=== PATIENT | male | born 1965 | race Caucasian/White ===

== ENCOUNTER 2017-06-24 15:11 | Emergency (ER) | payer OTHER ==
[2017-06-24] MEDS ORDERED: HYDROmorphone 1 MG/ML Syringe IVPUSH ONE ×2 (15:19→17:03)
[2017-06-24] MEDS ORDERED: Ondansetron 4 MG/2 ML SDV IVPUSH ONE (15:19)
[2017-06-24] MEDS ORDERED: Sodium Chloride 0.9% 10 ML Syringe FLUSH PRN (15:23)
[2017-06-24 15:24] VITALS: BP 121/71
[2017-06-24] MEDS ORDERED: Iopamidol 755 Mg/ML 100 ML Bottle IVPUSH ONE (15:30)
--- NOTE | 2017-06-24 15:30 | EDM.PDOC ---
ED HPI GENERAL MEDICAL PROBLEM - General Chief Complaint: Trauma Stated Complaint: FELL OFF LADDER Time Seen by Provider: 06/24/17 15:12 Source of Information: Reports: Patient History Limitations: Reports: No Limitations - History of Present Illness INITIAL COMMENTS - FREE TEXT/NARRATIVE: 52-year-old male presents for evaluation and treatment of injuries sustained from falling off a ladder. Injury occurred prior to arrival in the ER. Patient arrives via private vehicle. He is currently complaining of pain greatest to his right elbow and right shoulder. He also has a laceration to the right brow. He is unsure if he had any syncope but does not believe so. Believes he landed on his right arm. Also has pain to the left knee. Able to get up and walk inside after the fall. He denies any neck pain, chest pain, shortness of breath , abdominal pain, and nausea, vomiting, vision changes, epistaxis any pain in the hips. Tetanus is up-to-date. Trauma alert called upon arrival to the ER. C-collar applied upon arrival to the ER. Onset: Today Location: Reports: Upper Extremity, Right (elbow and shoulder) Right Arm Pain Score (Numeric/FACES): 10 - Related Data Allergies Allergy/AdvReac Type Severity Reaction Status Date / Time No Known Allergies Allergy Verified 06/24/17 15:13 Home Meds: Home Meds Acetaminophen/oxyCODONE [Percocet 325-5 MG] 1 tab PO Q6H PRN #20 tablet [Rx] Cephalexin [IJP: Cephalexin] 500 mg PO .EVERY 8 HOURS #21 cap 06/24/17 [Rx] Past Medical History HEENT History: Reports: None Cardiovascular History: Reports: None Respiratory History: Reports: Asthma (No Sx for 4 years) Other Respiratory History: Hx of Severe Snoring Gastrointestinal History: Reports: None Other Genitourinary History: increased PSA screen Musculoskeletal History: Reports: None Neurological History: Reports: None Psychiatric History: Reports: None Endocrine/Metabolic History: Reports: None - Past Surgical History GI Surgical History: Reports: Appendectomy, Cholecystectomy, Hernia, Inguinal Social & Family History - Tobacco Use Smoking Status *Q: Former Smoker (1-2 PPD X 35 yrs. - Quit 2011) Second Hand Smoke Exposure: No - Alcohol Use Days Per Week of Alcohol Use: 0 - Recreational Drug Use Recreational Drug Use: No Drug Use in Last 12 Months: No Review of Systems - Review of Systems Review Of Systems: See Below Eyes: Denies: Vision Change Nose: Denies: Epistaxis Mouth/Throat: Denies: Loose Teeth Respiratory: Denies: Shortness of Breath Cardiovascular: Denies: Chest Pain GI/Abdominal: Denies: Abdominal Pain, Vomiting Musculoskeletal: Reports: Shoulder Pain (right), Arm Pain (right), Joint Pain ( right shoudler and elbow, left knee). Denies: Neck Pain, Back Pain Skin: Reports: Wound (right brow) Neurological: Denies: Syncope (unsure, does no believe so), Difficulty Walking ED EXAM, GENERAL - Physical Exam Exam: See Below Exam Limited By: No Limitations General Appearance: Alert, WD/WN, Moderate Distress Eye Exam: Bilateral Eye: EOMI, Normal Inspection, PERRL Ears: Normal External Exam, Normal Canal, Hearing Grossly Normal, Normal TMs Nose: Normal Inspection, No Blood Throat/Mouth: Normal Inspection, Normal Lips, Normal Voice, No Airway Compromise Head: Other (3cm laceration to the right brow) Neck: Normal Inspection, Supple, Non-Tender, Full Range of Motion, Other (c- collar applied upon arrival) Respiratory/Chest: No Respiratory Distress, Lungs Clear, Normal Breath Sounds Cardiovascular: Normal Peripheral Pulses, Regular Rate, Rhythm, No Murmur Peripheral Pulses: 2+: Radial (L), Radial (R), Posterior Tibial (L), Posterior Tibial (R), Dorsalis Pedis (L), Dorsalis Pedis (R) GI/Abdominal: Normal Bowel Sounds, Soft, Non-Tender Back Exam: Normal Inspection. No: Vertebral Tenderness Extremities: Normal Inspection, Normal Capillary Refill, Other (pain with palpation to the right shuolder and elbow; reports pain greatest to the right elbow with radiation to the right shoulder; pain with palpation to the left knee ) Neurological: Alert, Oriented, Normal Cognition Psychiatric: Normal Affect, Normal Mood Skin Exam: Warm, Dry, Other (3cm laceration to the right lateral brow; 1cm abrasion to the right anterior mid tibia) ED TRAUMA PROCEDURES - Laceration/Wound Repair Right Lateral Brow Lac/Wound Length In cm: 3 Appearance: Linear Distal NVT: Neuro & Vascular Intact, No Tendon Injury Anesthetic Type: Local Local Anesthesia - Lidocaine (Xylocaine): 1% Plain Local Anesthetic Volume: 4cc Exploration/Debridement/Repair: Wound Explored, No Foreign Material Found Suture Size: other (6-0) # of Sutures: 10 Suture Type: Nylon, Interrupted, Simple Suture Size: other (5-0) # of Sutures: 5 Repaired With: Vicryl Sterile Dressing Applied: Nurse Tetanus Status Addressed: Yes Complications: No Course - Vital Signs Last Recorded V/S: Last Vital Signs Temp 36.9 C 06/24/17 15:15 Pulse 51 L 06/24/17 15:15 Resp 16 06/24/17 15:15 BP 121/71 06/24/17 15:15 Pulse Ox 97 06/24/17 15:15 - Orders/Labs/Meds Labs: Laboratory Tests 06/24/17 06/24/17 06/24/17 Range/Units 15:20 15:20 15:20 WBC 6.69 (4.23-9.07) K/mm3 RBC 4.94 (4.63-6.08) M/mm3 Hgb 14.3 (13.7-17.5) gm/L Hct 41.3 (40.1-51.0) % MCV 83.6 (79.0-92.2) fl MCH 28.9 (25.7-32.2) pg MCHC 34.6 (32.2-35.5) g/dl RDW Std Deviation 37.4 (35.1-43.9) fL Plt Count 241 (163-337) K/mm3 MPV 9.4 (9.4-12.3) fl Neut % (Auto) 39.5 (34.0-67.9) % Lymph % (Auto) 46.9 (21.8-53.1) % Baldwin % (Auto) 9.9 (5.3-12.2) % Eos % (Auto) 3.3 (0.8-7.0) Baso % (Auto) 0.4 (0.1-1.2) % Neut # (Auto) 2.64 (1.78-5.38) K/mm3 Lymph # (Auto) 3.14 (1.32-3.57) K/mm3 Baldwin # (Auto) 0.66 (0.30-0.82) K/mm3 Eos # (Auto) 0.22 (0.04-0.54) K/mm3 Baso # (Auto) 0.03 (0.01-0.08) K/mm3 PT 10.2 (8.0-13.0) SECONDS INR 0.94 APTT 23 (22-36) SECONDS Sodium 139 (136-145) mEq/L Potassium 3.9 (3.5-5.1) mEq/L Chloride 106 (98-107) mEq/L Carbon Dioxide 25 (21-32) mEq/L Anion Gap 11.9 (5-15) BUN 23 H (7-18) mg/dL Creatinine 1.2 (0.7-1.3) mg/dL Est Cr Clr Drug Dosing 68.09 mL/min Estimated GFR (MDRD) > 60 (>60) mL/min BUN/Creatinine Ratio 19.2 H (14-18) Glucose 152 H (74-106) mg/dL Calcium 8.6 (8.5-10.1) mg/dL Total Bilirubin 0.4 (0.2-1.0) mg/dL AST 27 (15-37) U/L ALT 40 (16-63) U/L Alkaline Phosphatase 45 L (46-116) U/L Total Protein 7.0 (6.4-8.2) g/dl Albumin 3.6 (3.4-5.0) g/dl Globulin 3.4 gm/dL Albumin/Globulin Ratio 1.1 (1-2) Lipase 178 (73-393) U/L Urine Color (Yellow) Urine Appearance (Clear) Urine pH (5.0-8.0) Ur Specific Tyler (1.005-1.030) Urine Protein (Negative) Urine Glucose (UA) (Negative) Urine Ketones (Negative) Urine Occult Blood (Negative) Urine Nitrite (Negative) Urine Bilirubin (Negative) Urine Urobilinogen (0.2-1.0) Ur Leukocyte Esterase (Negative) Urine RBC (0-5) /hpf Urine WBC (0-5) /hpf Ur Epithelial Cells (0-5) /hpf Urine Bacteria (FEW) /hpf Urine Mucus (FEW) /hpf Urine Opiates Screen (NEGATIVE) Ur Buprenorphine Scrn (NEGATIVE) Ur Oxycodone Screen (NEGATIVE) Urine Methadone Screen (NEGATIVE) Ur Propoxyphene Screen (NEGATIVE) Ur Barbiturates Screen (NEGATIVE) Ur Tricyclics Screen (NEGATIVE) Ur Phencyclidine Scrn (NEGATIVE) Ur Amphetamine Screen (NEGATIVE) U Methamphetamines Scrn (NEGATIVE) U Benzodiazepines Scrn (NEGATIVE) U Cocaine Metab Screen (NEGATIVE) U Marijuana (THC) Screen (NEGATIVE) Ethyl Alcohol 0.00 (0.00) gm% 06/24/17 06/24/17 Range/Units 19:15 19:15 WBC (4.23-9.07) K/mm3 RBC (4.63-6.08) M/mm3 Hgb (13.7-17.5) gm/L Hct (40.1-51.0) % MCV (79.0-92.2) fl MCH (25.7-32.2) pg MCHC (32.2-35.5) g/dl RDW Std Deviation (35.1-43.9) fL Plt Count (163-337) K/mm3 MPV (9.4-12.3) fl Neut % (Auto) (34.0-67.9) % Lymph % (Auto) (21.8-53.1) % Baldwin % (Auto) (5.3-12.2) % Eos % (Auto) (0.8-7.0) Baso % (Auto) (0.1-1.2) % Neut # (Auto) (1.78-5.38) K/mm3 Lymph # (Auto) (1.32-3.57) K/mm3 Baldwin # (Auto) (0.30-0.82) K/mm3 Eos # (Auto) (0.04-0.54) K/mm3 Baso # (Auto) (0.01-0.08) K/mm3 PT (8.0-13.0) SECONDS INR APTT (22-36) SECONDS Sodium (136-145) mEq/L Potassium (3.5-5.1) mEq/L Chloride (98-107) mEq/L Carbon Dioxide (21-32) mEq/L Anion Gap (5-15) BUN (7-18) mg/dL Creatinine (0.7-1.3) mg/dL Est Cr Clr Drug Dosing mL/min Estimated GFR (MDRD) (>60) mL/min BUN/Creatinine Ratio (14-18) Glucose (74-106) mg/dL Calcium (8.5-10.1) mg/dL Total Bilirubin (0.2-1.0) mg/dL AST (15-37) U/L ALT (16-63) U/L Alkaline Phosphatase (46-116) U/L Total Protein (6.4-8.2) g/dl Albumin (3.4-5.0) g/dl Globulin gm/dL Albumin/Globulin Ratio (1-2) Lipase (73-393) U/L Urine Color Yellow (Yellow) Urine Appearance Clear (Clear) Urine pH 7.5 (5.0-8.0) Ur Specific Tyler 1.015 (1.005-1.030) Urine Protein Negative (Negative) Urine Glucose (UA) Negative (Negative) Urine Ketones Negative (Negative) Urine Occult Blood Negative (Negative) Urine Nitrite Negative (Negative) Urine Bilirubin Negative (Negative) Urine Urobilinogen 0.2 (0.2-1.0) Ur Leukocyte Esterase Negative (Negative) Urine RBC Not seen (0-5) /hpf Urine WBC 0-5 (0-5) /hpf Ur Epithelial Cells Not seen (0-5) /hpf Urine Bacteria Few (FEW) /hpf Urine Mucus Few (FEW) /hpf Urine Opiates Screen Presumptive positive H (NEGATIVE) Ur Buprenorphine Scrn Negative (NEGATIVE) Ur Oxycodone Screen Negative (NEGATIVE) Urine Methadone Screen Negative (NEGATIVE) Ur Propoxyphene Screen Negative (NEGATIVE) Ur Barbiturates Screen Negative (NEGATIVE) Ur Tricyclics Screen Negative (NEGATIVE) Ur Phencyclidine Scrn Negative (NEGATIVE) Ur Amphetamine Screen Negative (NEGATIVE) U Methamphetamines Scrn Negative (NEGATIVE) U Benzodiazepines Scrn Negative (NEGATIVE) U Cocaine Metab Screen Negative (NEGATIVE) U Marijuana (THC) Screen Negative (NEGATIVE) Ethyl Alcohol (0.00) gm% Meds: Medications Discontinued Medications Generic Name Dose Route Start Last Admin Trade Name Freq PRN Reason Stop Dose Admin Hydromorphone HCl 1 mg 06/24/17 15:19 06/24/17 15:29 Dilaudid IVPUSH 06/24/17 15:20 1 mg ONETIME ONE Administration Hydromorphone HCl 1 mg 06/24/17 17:03 06/24/17 17:07 Dilaudid IVPUSH 06/24/17 17:04 1 mg ONETIME ONE Administration Hydromorphone HCl 0.5 mg 06/24/17 20:13 06/24/17 20:14 Dilaudid IVPUSH 06/24/17 20:14 0.5 mg ONETIME STA Administration Hydromorphone HCl Confirm 06/24/17 20:16 06/24/17 22:53 Dilaudid Administered 06/24/17 20:17 Not Given Dose 0.5 mg .ROUTE .STK-MED ONE Iopamidol 100 ml 06/24/17 15:30 06/24/17 16:08 Isovue-370 (76%) IVPUSH 06/24/17 15:31 100 ml ONETIME ONE Administration Lidocaine HCl 50 ml 06/24/17 17:03 06/24/17 17:09 Xylocaine 1% INJECT 06/24/17 17:04 50 ml ONETIME ONE Administration Ondansetron HCl 4 mg 06/24/17 15:19 06/24/17 15:28 Zofran IVPUSH 06/24/17 15:20 4 mg ONETIME ONE Administration Sodium Chloride 10 ml 06/24/17 15:23 06/24/17 15:30 Saline Flush FLUSH 10 ml ASDIRECTED PRN Administration Keep Vein Open - Radiology Interpretation Free Text/Narrative:: CT of the cervical spine without contrast impression per [facility]: No acute findings. The cervical spine alignment is normal. Chronic degenerative vertebral body endplate osteophytosis with diminished disc height is seen at C5/ C6 with anterior and posterior lonitudinal ligament calcification at levels C2- C6. Chronic degenerative bony neuroforaminal stenosis secondary to uncal joint and posterior facet joint arthropathy on he left at C5/C6. Mild central spinal canal stenosis is additionally present secondary to posterior disc bulging at C5 /C66. Ct of the head without contrast impression per [facility]: Soft tissue swelling and skin laceration with underlying scalp contusion noted in the right supraorbital frontal region with no associated calvarial or orbital fractures identified. No acute intracerebral abnormality or injury. Normal brain. Small mucosal retention cysts or polyps are seen in both maxillary sinuses. CT of the maxillofacial without IV contrast impression per [facility]: soft tissue swelling and skin laceration with underlying scalp contusion noted in the right supraorbital frontal region with no associated calcvarial or orbital fractures identified. The mandible and temporomandibular joints appear normal. No acute intracerebral abnormality or injury in the frontal brain. Small mucosal retention cysts or polys are seen in both maxillary sinuses. CT of the abdomen and pelvis with IV contrast impression per [facility]: No evidence of solid abdominal organ injury. likely post cholecystectomy biliary ductal dilation. Nonobstructive right nephrolithiasis. CT of the chest with IV contrast impression per [facility]: Xray of the right elbow shows a laterally displaced fracture of the radial head xray of the right shoulder shows no acute fractures or dislocations. - Re-Assessments/Exams Free Text/Narrative Re-Assessment/Exam: 06/24/17 20:19 Sutures placed to the right lateral brow. Patient tolerated this procedure well. There were no complications. He reports his tetanus is up-to-date. Reviewed the imaging and lab results with the patient. Will put him in a sling for the fracture to his right radial head. I will have him follow up with orthopedics. Patient has been seen by Dr. Cottrell, ER physician, as this was a trauma alert. He agrees with treatment plan. Discharge instructions this documented. Departure - Departure Time of Disposition: 20:18 Disposition: Home, Self-Care 01 Condition: Fair Clinical Impression: Laceration, Radial head fracture, closed - Discharge Information Prescriptions: Acetaminophen/oxyCODONE [Percocet 325-5 MG] 1 tab PO Q6H PRN #20 tablet PRN Reason: Pain Cephalexin [IJP: Cephalexin] 500 mg PO .EVERY 8 HOURS #21 cap Instructions: Laceration Care, Adult, Radial Head Fracture, [id number] Referrals: PCP,None [Primary Care Provider] - Casa Wise MD [Physician] - Tigist Cloud NP [ED Midlevel Provider] - Forms: ED Department Discharge Additional Instructions: you were given medication in the ER that can affect your ability to drive and operate machinery. Do not drive or operate machinery within 12 hours of taking prescription narcotic pain medication. Percocet 1-2 tabs every 4-6 hours as needed for pain. Do not drive or operate machinery within 12 hours of taking Percocet. Percocet can be habit-forming, I recommend you take as little as needed to control your pain. Ice the elbow 4 or 5 times a day for 15-20 minutes. Follow-up with orthopedics this week. Recommend Dr. Wise. Call [phone] Wise. Keflex 1 tablet 3 times a day. Take this medication with food. Wash the wound with gentle soap and water twice a day. Antibacterial ointment such as Neosporin or bacitracin to the wound. If you notice any redness, swelling or pus present to the clinic or the ER. Have the sutures removed in 5-7 days. your PCP can do this. Please return to the ER for symptoms change or worsen.
[2017-06-24] MEDS ORDERED: Lidocaine 1% 50 ML MDV INJECT ONE (17:03)
[2017-06-24] MEDS ORDERED: HYDROmorphone 0.5 MG/0.5 ML Syringe IVPUSH STA (20:13)
[2017-06-24] MEDS ORDERED: HYDROmorphone 0.5 MG/0.5 ML Syringe ONE (20:16)
--- NOTE | 2017-06-25 12:54 | CR ---
Right elbow: Four views of the right elbow were obtained. Mildly displaced fracture identified within the radial head. Joint effusion is seen. No additional fracture or other bony abnormality is seen. Impression: 1. Mildly displaced radial head fracture with joint effusion. Diagnostic code #3
--- NOTE | 2017-06-25 12:54 | CT ---
Head CT Technique: Multiple axial sections through the brain were obtained. Intravenous contrast was not utilized. Comparison: No prior intracranial imaging. Findings: Ventricles along with basal cisterns and sulci over the convexities appear within normal limits for the patient's age. No abnormal parenchymal densities are seen. No evidence of intracranial hemorrhage. No midline shift or mass effect is seen. Bone window settings were reviewed which show no acute calvarial abnormality. Small retention cysts are seen within both maxillary sinuses. Mild soft tissue swelling is seen within the right forehead with soft tissue injury. Impression: 1. Incidental sinus findings. 2. Scalp injury within the right frontal region. 3. No acute intracranial abnormality is seen. Diagnostic code #2 I agree with preliminary report issued by [employer] ([facility] preliminary report dictated on 06/24/17, 5:36 PM Central Time)
--- NOTE | 2017-06-25 12:54 | CT ---
CT facial bones Technique: Multiple axial sections through the facial bones were obtained. Reconstructed coronal and sagittal images were reviewed. Findings: Soft tissue swelling and soft tissue injury is seen within the right frontal scalp. Right and left globes are symmetric. Small rounded areas of soft tissue density are seen within the inferior maxillary sinuses which are felt compatible with incidental retention cyst. No fluid is identified within the paranasal sinuses. Visualized mastoid sinuses and middle ear cavities are clear. No acute facial bone fracture is appreciated. Impression: 1. Scalp injury within the right frontal region. 2. Incidental sinus findings. 3. No acute fracture seen within the facial bones. Diagnostic code #2 I agree with preliminary report issued by [email or web address] ([facility] preliminary report dictated on 06/24/17, 5:42 PM Central Time)
--- NOTE | 2017-06-25 12:54 | CR ---
Right shoulder: Three views of the right shoulder were obtained. Comparison: No prior shoulder exam. Glenohumeral joint appears within normal limits. Slight joint space narrowing is noted within the acromioclavicular joint but no inferior spurring is identified. No fracture, dislocation or other bony abnormality is appreciated. Impression: 1. Nothing acute is appreciated on three-view right shoulder exam. Diagnostic code #2
--- NOTE | 2017-06-25 12:54 | CR ---
Left knee: Four views of the left knee were obtained. Comparison: No previous knee exam. Medial and lateral joint spaces are maintained in height. No joint effusion is seen. No acute fracture or other bony abnormality is identified. Impression: 1. No abnormality is identified on left knee exam. Diagnostic code #1
--- NOTE | 2017-06-25 17:27 | CT ---
CT chest Technique: Multiple axial sections were obtained from above the lung apices inferiorly through the lung bases. Intravenous contrast was utilized. Findings: Mild artifact seen from the patient's right arm being along his side. Mediastinum and hilar regions appear within normal limits. Minimal atherosclerotic calcification is seen within the thoracic aorta. Minimal coronary artery calcification is seen. No pericardial thickening is seen. No adenopathy is identified within the chest. No pulmonary contusions are seen within the lungs. Lungs show no acute pulmonary densities. No pleural effusions or pneumothorax is seen. Bone window settings were reviewed which show scattered degenerative spurring within the spine. No discrete rib fracture is appreciated. Impression: 1. Incidental findings as noted above. Nothing acute is appreciated on CT study of the chest. Diagnostic code #2 I agree with preliminary report issued by [email or web address] ([employer] preliminary report dictated on 06/24/17, 5:30 PM Central Time) CT abdomen and pelvis Technique: Multiple axial sections were obtained from above the dome of the diaphragm inferiorly through the pubic symphysis. Intravenous contrast was utilized. No oral contrast has been given. Artifact noted from the patient's arm being along his side on the right side. Findings: Liver shows no focal parenchymal abnormality. Minimal prominence of the intrahepatic and extrahepatic biliary ducts is noted which is felt to be incidental and secondary to previous cholecystectomy. Spleen appears within normal limits. Adrenal glands show no nodule. Pancreas is within normal limits. Kidneys show symmetric contrast enhancement without hydronephrosis or mass. Very small nonobstructing calculus measuring about 1 mm seen within the mid right kidney. Surgical clips are seen from prior cholecystectomy. Aorta shows mild atherosclerotic calcification without aneurysmal dilatation. Surgical clips are seen within the right lower abdomen most likely from prior appendectomy. No pelvic mass or adenopathy is seen. No free fluid or inflammatory change is seen. Bone window settings were reviewed which show mild degenerative change within the spine. Nothing acute appreciated within the spine or within the pelvis. Impression: 1. Incidental findings. Nothing acute is appreciated on CT study of the abdomen and pelvis. Diagnostic code #2 I agree with preliminary report issued by [email or web address] ([employer] preliminary report dictated on 06/24/17, 5:32 PM Central Time)
--- NOTE | 2017-06-25 17:27 | CT ---
CT cervical spine Technique: Multiple axial sections were obtained from above C1 inferiorly to the bottom of T1. Reconstructed sagittal and coronal images were reviewed. Comparison: No prior cervical spine imaging. Findings: Degenerative spurring noted within the uncovertebral joints most prominent at C5-C6. Mild posterior spurring is also noted at C5-C6. Slight calcification within the anterior longitudinal ligament scattered within the cervical spine. Anterior osteophytes are seen most prominent C5-C6. Ligamentum nuchal calcification is seen. Minimal central canal stenosis suggested at C5-C6. Neural foramina are felt to be patent. No fracture is appreciated. No abnormal subluxation is seen. Impression: 1. Mild degenerative change. Nothing acute is appreciated on CT study of the cervical spine. Diagnostic code #2 I agree with preliminary report issued by [email or web address] ([facility] preliminary report dictated on 06/24/17, 5:54 PM Central Time)
== END 2017-06-24 20:45 | disposition home or self-care (01) ==
LOC: JD.ED 15:11
DX: S52.121A Displaced fracture of head of right radius, initial encounter for closed fracture (principal); S01.81XA Laceration without foreign body of other part of head, initial encounter; Z87.891 Personal history of nicotine dependence; W11.XXXA Fall on and from ladder, initial encounter
CPT/HCPCS: 12013; 36415; 70450; 70486; 71260; 72125; 73030; 73080; 73564; 74177; 80053; 80306; 81001; 83690; 85025; 85610; 85730; 96374; 96375; 96376; 99285; G0480; J1170; J2405; J7050; Q9967; 99284-25

== ENCOUNTER 2021-07-19 04:54 | Emergency (ER) | payer OTHER ==
[2021-07-19 05:12] VITALS: BP 130/70; PULSE 54
[2021-07-19] MEDS ORDERED: Ketorolac 15 MG/ML SDV IM ONE (05:23)
[2021-07-19] MEDS ORDERED: Baclofen 10 MG Tab PO ONE (05:24)
== END 2021-07-19 05:46 | disposition home or self-care (01) ==
LOC: JD.ED 04:54
DX: S39.012A Strain of muscle, fascia and tendon of lower back, initial encounter (principal); Z87.891 Personal history of nicotine dependence; X50.3XXA Overexertion from repetitive movements, initial encounter
CPT/HCPCS: 96372; 99283; A9270; J1885

== ENCOUNTER 2023-05-08 04:23 | Emergency (ER) | payer BC, OTHER ==
[2023-05-08] MEDS ORDERED: Sodium Chloride 0.9% 10 ML Syringe FLUSH PRN (04:52)
[2023-05-08] MEDS ORDERED: Ondansetron 4 MG/2 ML SDV IVPUSH ONE (04:53)
[2023-05-08] MEDS ORDERED: HYDROmorphone 0.5 MG/0.5 ML Syringe IVPUSH ONE (04:53)
[2023-05-08] MEDS ORDERED: Ketorolac 30 MG/ML SDV IVPUSH ONE (04:53)
[2023-05-08] MEDS ORDERED: Sodium Chloride 0.9% 1,000 ML IV SCH (05:00)
[2023-05-08 05:19] LABS: APPEARANCE,URINE CLEAR (Clear); BILIRUBIN,URINE NEGATIVE (Negative); COLOR,URINE LIGHT YELLOW (Yellow); GLUCOSE,URINE NEGATIVE (Negative); KETONES,URINE NEGATIVE (Negative); LEUKOCYTE ESTERASE,URINE NEGATIVE (Negative); NITRITE,URINE NEGATIVE (Negative); OCCULT BLOOD,URINE NEGATIVE (Negative); PROTEIN,URINE NEGATIVE (Negative); UROBILINOGEN,URINE 0.2 (0.2-1.0)
[2023-05-08 05:25] LABS: BACTERIA,URINE RARE /hpf (FEW); EPITHELIAL CELLS,URINE NOT SEEN /hpf (0-5); MUCUS,URINE NOT SEEN /hpf (FEW); RBC,URINE 0-5 /hpf (0-5); WBC,URINE 0-5 /hpf (0-5)
[2023-05-08 05:27] LABS: BASOPHILS PERCENT AUTO 0.6 % (0.0-1.0); EOSINOPHILS ABSOLUTE AUTO 0.2 K/mm3 (0.0-0.4); EOSINOPHILS PERCENT AUTO 2.5 % (0.0-6.0); HEMATOCRIT 41.1 % (42.0-52.0); HEMOGLOBIN 14.1 gm/dl (14.0-18.0); IMMATURE GRAN ABSOLUTE AUTO 0.01 K/mm3 (0.00-0.05); IMMATURE GRAN PERCENT AUTO 0.1 % (0.0-0.4); LYMPHOCYTES ABSOLUTE AUTO 2.3 K/mm3 (1.0-4.8); LYMPHOCYTES PERCENT AUTO 33.6 % (24.0-44.0); MEAN CORPUSCULAR HEMOGLOBIN 29.4 pg (28.0-32.0); MEAN CORPUSCULAR HGB CONC 34.3 g/dl (32.0-36.0); MEAN CORPUSCULAR VOLUME 85.6 fl (83.0-99.0); MEAN PLATELET VOLUME 9.9 fl (9.4-12.4); MONOCYTES ABSOLUTE AUTO 0.6 K/mm3 (0.0-0.8); MONOCYTES PERCENT AUTO 8.7 % (0.0-8.0); NEUTROPHILS ABSOLUTE AUTO 3.7 K/mm3 (1.8-7.7); NEUTROPHILS PERCENT AUTO 54.5 % (41.0-71.0); PLATELET COUNT,PLT 221 K/mm3 (150-400); WHITE BLOOD CELL COUNT,WBC 6.78 K/mm3 (3.9-11.3)
[2023-05-08 05:32] LABS: A/G RATIO 1.1 (1-2); ALBUMIN 3.4 g/dl (3.4-5.0); ANION GAP 14.2 (5-15); BILIRUBIN TOTAL 0.3 mg/dL (0.2-1.0); BUN/CREATININE RATIO 13.3 (14-18); CALCIUM 8.6 mg/dL (8.5-10.1); CREATININE 0.9 mg/dL (0.7-1.3); EST CRCL DRUG DOSING (CG) 84.67 mL/min; POTASSIUM,K 4.2 mEq/L (3.5-5.1); PROTEIN TOTAL,TP 6.5 g/dl (6.4-8.2)
[2023-05-08 06:32] VITALS: BP 111/50; PULSE 53
== END 2023-05-08 06:15 | disposition home or self-care (01) ==
LOC: JD.ED 04:23
DX: M54.50 Low back pain, unspecified (principal); Z87.891 Personal history of nicotine dependence
CPT/HCPCS: 36415; 74176; 80053; 81001; 83690; 85025; 96374; 96375; 99284; J1170; J1885; J2405; J7030